=== PATIENT | female | born 1995 | race African-American/Black ===

== ENCOUNTER 2017-07-22 15:39 | Emergency (ER) | payer MEDICAID, OTHER ==
[~2017-07-22] VITALS: Ht 162.6 cm; Wt 55.1 kg
[2017-07-22] MEDS ORDERED: ACETAMINOPHEN 325MG TABLET PO ONE (19:00)
[2017-07-22] MEDS ORDERED: IBUPROFEN 600MG TABLET PO ONE (19:00)
[2017-07-22 20:00] VITALS: BP 102/60
[2017-07-22 20:03] LABS: CLARITY URINE TURBID (CLEAR); COLOR URINE YELLOW (YELLOW); GLUCOSE URINE NEGATIVE (NEGATIVE); KETONES URINE NEGATIVE (NEGATIVE); LEUKOCYTE ESTERASE URINE 3+ (NEGATIVE); NITRITE URINE POSITIVE (NEGATIVE); OCCULT BLOOD URINE TRACE (NEGATIVE); PROTEIN URINE 1+ (NEGATIVE); SPECIFIC GRAVITY URINE 1.013 (1.005-1.030)
== END 2017-07-22 20:49 | disposition home or self-care (01) ==
LOC: ER 19:11
DX: N39.0 Urinary tract infection, site not specified (principal)
CPT/HCPCS: 81001; 81025; 87077; 87086; 87186; 99284

== ENCOUNTER 2017-09-12 13:21 | Emergency (ER) | payer OTHER ==
[~2017-09-12] VITALS: Ht 157.5 cm; Wt 57.0 kg
[2017-09-12 13:56] VITALS: BP 104/68
[2017-09-12 14:28] LABS: CLARITY URINE CLEAR (CLEAR); COLOR URINE YELLOW (YELLOW); KETONES URINE NEGATIVE (NEGATIVE); LEUKOCYTE ESTERASE URINE 2+ (NEGATIVE); NITRITE URINE NEGATIVE (NEGATIVE); OCCULT BLOOD URINE NEGATIVE (NEGATIVE); PH URINE 6.5 (4.5-8.0); PROTEIN URINE NEGATIVE (NEGATIVE); SPECIFIC GRAVITY URINE 1.018 (1.005-1.030)
== END 2017-09-12 17:27 | disposition left against medical advice (07) ==
LOC: ER 13:52
DX: Z53.21 Procedure and treatment not carried out due to patient leaving prior to being seen by health care provider (principal)
CPT/HCPCS: 81001; 81025

== ENCOUNTER 2021-07-01 09:14 | Emergency (ER) | payer MEDICAID, OTHER ==
[~2021-07-01] VITALS: Ht 160 cm; Wt 58.0 kg
[2021-07-01] MEDS ORDERED: ACETAMINOPHEN 325MG TABLET PO ONE (09:45)
[2021-07-01] MEDS ORDERED: CEFTRIAXONE SODIUM 1 G/VIAL IM ONE (10:15)
[2021-07-01] MEDS ORDERED: DOXYCYCLINE HYCLATE 100MG CAPSULE PO ONE (10:15)
[2021-07-01] MEDS ORDERED: TOPUD PO (10:42)
[2021-07-01] MEDS ORDERED: DOXY100T2 PO (10:44)
[2021-07-01 11:37] VITALS: BP 108/67
[2021-07-01 14:25] LABS: CLARITY URINE CLOUDY (CLEAR); COLOR URINE YELLOW (YELLOW); KETONES URINE NEGATIVE (NEGATIVE); LEUKOCYTE ESTERASE URINE 1+ (NEGATIVE); NITRITE URINE NEGATIVE (NEGATIVE); OCCULT BLOOD URINE NEGATIVE (NEGATIVE); PROTEIN URINE NEGATIVE (NEGATIVE); SPECIFIC GRAVITY URINE 1.006 (1.005-1.030); UROBILINOGEN URINE 0.2 E.U./dL (0.2-1.0)
[2021-07-04 13:06] LABS: NEISSERIA GONORRHOEAE NAA Negative (Negative)
== END 2021-07-01 11:41 | disposition home or self-care (01) ==
LOC: ER 09:14
DX: M67.432 Ganglion, left wrist (principal); Z20.2 Contact with and (suspected) exposure to infections with a predominantly sexual mode of transmission; Z98.890 Other specified postprocedural states
CPT/HCPCS: 29125; 73110; 81003; 81025; 87210; 87491; 87591; 96372; 99284; J0696; Z7610

== ENCOUNTER 2021-07-05 20:42 | Emergency (ER) | payer MEDICAID ==
[~2021-07-05] VITALS: Ht 157.5 cm; Wt 58.6 kg
[~2021-07-05 20:42] MED LIST: DOXY100T2 PO; TOPUD PO
[2021-07-05 22:35] VITALS: BP 125/84
== END 2021-07-05 22:43 | disposition home or self-care (01) ==
LOC: ER 20:42
DX: M67.432 Ganglion, left wrist (principal); S62.002A Unspecified fracture of navicular [scaphoid] bone of left wrist, initial encounter for closed fracture; Z98.890 Other specified postprocedural states; X58.XXXA Exposure to other specified factors, initial encounter; Y93.89 Activity, other specified; Y92.89 Other specified places as the place of occurrence of the external cause; Y99.8 Other external cause status
CPT/HCPCS: 99281

== ENCOUNTER 2021-09-05 22:17 | Emergency (ER) | payer MEDICAID ==
[~2021-09-05] VITALS: Ht 160 cm; Wt 60.5 kg
[2021-09-06 02:10] VITALS: BP 125/83
== END 2021-09-06 03:45 | disposition home or self-care (01) ==
LOC: ER 22:17
DX: M25.532 Pain in left wrist (principal); Z87.828 Personal history of other (healed) physical injury and trauma
CPT/HCPCS: 29125; 73110; 81025; 99283